=== PATIENT | male | born 1950 | race Two or more races ===

== ENCOUNTER 2019-04-02 18:20 | Inpatient (IN) | payer BC, MEDICARE ==
[~2019-04-02] VITALS: Ht 170.2 cm; Wt 73.0 kg
[2019-04-02 19:30] VITALS: BP 132/71
[2019-04-02] MEDS ORDERED: ACETAMINOPHEN 325 MG TABLET PO PRN (19:45)
[2019-04-02] MEDS ORDERED: SENNA 187 MG TABLET PO SCH (21:00)
[2019-04-02] MEDS: ATORVASTATIN CALCIUM 40 MG TABLET PO SCH (21:26)
[2019-04-02] MEDS: TAMSULOSIN HCL 0.4 MG CAPSULE PO SCH (21:26)
[2019-04-02] MEDS: INSULIN GLARGINE,HUM.REC.ANLOG 100 UNITS/ML SQ SCH (21:26)
[2019-04-02 22:01] LABS: GLUCOMETER DEV NAME(LOC) 2WR.2; GLUCOSE,POINT OF CARE 227 MG/DL (70-110)
[2019-04-03] MEDS ORDERED: DOCUSATE SODIUM 283 MG/5 ML MINI-ENEMA PR PRN
[2019-04-03 00:36] VITALS: BP 128/84
[2019-04-03 06:31] LABS: GLUCOMETER DEV NAME(LOC) 2WR.2; GLUCOSE,POINT OF CARE 213 MG/DL (70-110)
[2019-04-03 06:33] LABS: BASOPHILS % (AUTO) 0.9 % (0.0-2.0); EOSINOPHILS % (AUTO) 3.1 % (1.0-6.0); HEMATOCRIT 39.1 % (41-53); LYMPHOCYTES # (AUTO) 1.6 K/uL (1.0-4.8); LYMPHOCYTES % (AUTO) 19.7 % (22.0-44.0); MEAN CORPUSCULAR HEMOGLOBIN 31.8 pg (26.0-34.0); MEAN CORPUSCULAR HGB CONC 35.8 G/dL (31.0-37.0); MEAN CORPUSCULAR VOLUME 89 fL (80-100); MONOCYTES # (AUTO) 0.6 K/uL (0.1-1.0); NEUTROPHILS # (AUTO) 5.5 K/uL (1.8-7.7); NEUTROPHILS % (AUTO) 68.3 % (40.0-70.0); PLATELET COUNT (AUTO) 291 K/uL (150-450); RED BLOOD CELL COUNT(AUTO) 4.41 MIL/uL (4.50-5.90); RED CELL DISTRIBUTION WIDTH 13.6 % (11.5-14.5)
[2019-04-03 07:04] LABS: ALANINE AMINOTRANSFERASE 19 U/L (12-78); ALBUMIN 3.3 g/dL (3.4-5.0); ALKALINE PHOSPHATASE 124 U/L (46-116); ANION GAP 8 mmol/L (8-16); ASPARTATE AMINOTRANSFERASE 11 U/L (15-37); BILIRUBIN,TOTAL 0.7 mg/dL (0.1-1.0); CALCIUM, TOTAL 9.4 mg/dL (8.8-10.5); CARBON DIOXIDE 28 mmol/L (22-29); CHLORIDE 103 mmol/L (98-107); CREATININE 0.85 mg/dL (0.60-1.30); GLOMERULAR FILTR. RATE CALC > 60 mL/min (>60); GLUCOSE,RANDOM 219 mg/dL (70-110); POTASSIUM 3.8 mmol/L (3.5-5.1); SODIUM SERUM 139 mmol/L (136-145); TOTAL PROTEIN, SERUM 6.4 g/dL (6.4-8.2); UREA NITROGEN, BLOOD 18 mg/dL (7-18)
[2019-04-03 07:20] VITALS: BP 125/70
[2019-04-03] MEDS: MetFORMIN HCL 500 MG TABLET PO SCH ×2 (07:41→17:30)
[2019-04-03] MEDS: INSULIN LISPRO 100 UNITS/ML SQ SCH ×3 (07:42→17:29)
[2019-04-03] MEDS: FINASTERIDE 5 MG TABLET PO SCH (08:47)
[2019-04-03] MEDS: SitaGLIPtin PHOSPHATE 100 MG TABLET PO SCH (08:47)
[2019-04-03] MEDS: AmLODIPine BESYLATE 5 MG TABLET PO SCH (08:48)
[2019-04-03] MEDS: LISINOPRIL 20 MG TABLET PO SCH (08:48)
[2019-04-03] MEDS: ASPIRIN 81 MG EC TABLET PO SCH (08:48)
[2019-04-03] MEDS ORDERED: DOCUSATE SODIUM 100 MG CAPSULE PO SCH (09:00)
[2019-04-03] MEDS ORDERED: INSULIN LISPRO 100 UNITS/ML SQ PRN ×2 (12:30→12:45)
[2019-04-03] MEDS ORDERED: GLUCAGON,HUMAN RECOMBINANT 1 MG VIAL IM PRN (12:30)
[2019-04-03] MEDS ORDERED: MAGNESIUM CITRATE 300 ML ORAL SOLUTION PO ONE (12:30)
[2019-04-03 12:31] LABS: GLUCOMETER DEV NAME(LOC) 2WR.2; GLUCOSE,POINT OF CARE 214 MG/DL (70-110)
[2019-04-03] MEDS ORDERED: DEXTROSE 50%-WATER 25 GM/50 ML SYRINGE IVP PRN ×2 (12:45→13:00)
[2019-04-03] MEDS: POLYETHYLENE GLYCOL 3350 17 GM PACKET PO SCH (13:04)
[2019-04-03 15:58] VITALS: BP 124/72
[2019-04-03] MEDS: INSULIN LISPRO 100 UNITS/ML SQ PRN (17:30)
[2019-04-03 18:05] LABS: GLUCOMETER DEV NAME(LOC) 2WR.2; GLUCOSE,POINT OF CARE 176 MG/DL (70-110)
[2019-04-03] MEDS: DOCUSATE SODIUM 250 MG CAPSULE PO SCH (20:49)
[2019-04-03] MEDS: TAMSULOSIN HCL 0.4 MG CAPSULE PO SCH (20:49)
[2019-04-03] MEDS: ATORVASTATIN CALCIUM 40 MG TABLET PO SCH (20:49)
[2019-04-03] MEDS: INSULIN GLARGINE,HUM.REC.ANLOG 100 UNITS/ML SQ SCH (21:04)
[2019-04-03 21:05] LABS: GLUCOMETER DEV NAME(LOC) 2WR.1B; GLUCOSE,POINT OF CARE 126 MG/DL (70-110)
[2019-04-04 00:30] VITALS: BP 111/65
[2019-04-04 06:16] LABS: GLUCOMETER DEV NAME(LOC) 2WR.2; GLUCOSE,POINT OF CARE 146 MG/DL (70-110)
[2019-04-04 07:45] VITALS: BP 119/70
[2019-04-04] MEDS: MetFORMIN HCL 500 MG TABLET PO SCH ×2 (07:55→17:36)
[2019-04-04] MEDS: INSULIN LISPRO 100 UNITS/ML SQ PRN ×3 (07:57→20:24)
[2019-04-04] MEDS: INSULIN LISPRO 100 UNITS/ML SQ SCH ×3 (07:57→17:36)
[2019-04-04] MEDS: DOCUSATE SODIUM 250 MG CAPSULE PO SCH ×2 (08:37→20:18)
[2019-04-04] MEDS: POLYETHYLENE GLYCOL 3350 17 GM PACKET PO SCH (08:37)
[2019-04-04] MEDS: SitaGLIPtin PHOSPHATE 100 MG TABLET PO SCH (08:37)
[2019-04-04] MEDS: FINASTERIDE 5 MG TABLET PO SCH (08:37)
[2019-04-04] MEDS: AmLODIPine BESYLATE 5 MG TABLET PO SCH (08:37)
[2019-04-04] MEDS: LISINOPRIL 20 MG TABLET PO SCH (08:37)
[2019-04-04] MEDS: ASPIRIN 81 MG EC TABLET PO SCH (08:38)
[2019-04-04 12:50] LABS: GLUCOMETER DEV NAME(LOC) 2WR.2; GLUCOSE,POINT OF CARE 140 MG/DL (70-110)
[2019-04-04 16:22] VITALS: BP 109/51
[2019-04-04 18:21] LABS: GLUCOMETER DEV NAME(LOC) 2WR.2; GLUCOSE,POINT OF CARE 152 MG/DL (70-110)
[2019-04-04] MEDS: ATORVASTATIN CALCIUM 40 MG TABLET PO SCH (20:18)
[2019-04-04] MEDS: TAMSULOSIN HCL 0.4 MG CAPSULE PO SCH (20:18)
[2019-04-04] MEDS: INSULIN GLARGINE,HUM.REC.ANLOG 100 UNITS/ML SQ SCH (20:23)
[2019-04-04 20:50] LABS: GLUCOMETER DEV NAME(LOC) 2WR.2; GLUCOSE,POINT OF CARE 147 MG/DL (70-110)
[2019-04-05 00:34] VITALS: BP 113/77
[2019-04-05 06:30] LABS: GLUCOMETER DEV NAME(LOC) 2WR.1B; GLUCOSE,POINT OF CARE 125 MG/DL (70-110)
[2019-04-05 07:30] VITALS: BP 113/65
[2019-04-05] MEDS: MetFORMIN HCL 500 MG TABLET PO SCH ×2 (08:12→17:33)
[2019-04-05] MEDS: INSULIN LISPRO 100 UNITS/ML SQ SCH ×3 (08:20→16:56)
[2019-04-05] MEDS: POLYETHYLENE GLYCOL 3350 17 GM PACKET PO SCH (08:30)
[2019-04-05] MEDS: DOCUSATE SODIUM 250 MG CAPSULE PO SCH ×2 (08:31→20:54)
[2019-04-05] MEDS: ASPIRIN 81 MG EC TABLET PO SCH (08:31)
[2019-04-05] MEDS: LISINOPRIL 20 MG TABLET PO SCH (08:31)
[2019-04-05] MEDS: AmLODIPine BESYLATE 5 MG TABLET PO SCH (08:31)
[2019-04-05] MEDS: SitaGLIPtin PHOSPHATE 100 MG TABLET PO SCH (08:31)
[2019-04-05] MEDS: TAMSULOSIN HCL 0.4 MG CAPSULE PO SCH ×2 (08:31→20:54)
[2019-04-05] MEDS: FINASTERIDE 5 MG TABLET PO SCH (08:31)
[2019-04-05 12:45] LABS: GLUCOMETER DEV NAME(LOC) 2WR.2; GLUCOSE,POINT OF CARE 125 MG/DL (70-110)
[2019-04-05] MEDS ORDERED: TAMS-1 PO (13:28)
[2019-04-05] MEDS ORDERED: FINA5TAB41 PO (13:28)
[2019-04-05] MEDS ORDERED: ASPI81 PO (13:28)
[2019-04-05] MEDS ORDERED: LISI-662 PO (13:28)
[2019-04-05] MEDS ORDERED: INSU100V SQ (13:28)
[2019-04-05] MEDS ORDERED: METF-960 PO (13:28)
[2019-04-05] MEDS ORDERED: AMLO5TAB9 PO (13:28)
[2019-04-05] MEDS ORDERED: SITA100 PO (13:28)
[2019-04-05] MEDS ORDERED: ATOR40TA28 PO (13:28)
[2019-04-05] MEDS ORDERED: INSLAN SQ (13:28)
[2019-04-05 16:19] VITALS: BP 105/64
[2019-04-05 17:41] LABS: GLUCOMETER DEV NAME(LOC) 2WR.1B; GLUCOSE,POINT OF CARE 121 MG/DL (70-110)
[2019-04-05] MEDS: ATORVASTATIN CALCIUM 40 MG TABLET PO SCH (20:54)
[2019-04-05] MEDS ORDERED: INSULIN GLARGINE,HUM.REC.ANLOG 100 UNITS/ML SQ SCH (21:00)
[2019-04-05 22:00] LABS: GLUCOMETER DEV NAME(LOC) 2WR.2; GLUCOSE,POINT OF CARE 80 MG/DL (70-110)
[2019-04-05 22:22] LABS: APPEARANCE,URINE CLEAR (CLEAR); BILIRUBIN,URINE NEGATIVE (NEGATIVE); GLUCOSE, URINE (UA) NEGATIVE (NEGATIVE); KETONES,URINE NEGATIVE (NEGATIVE); LEUKOCYTE ESTERASE ,URINE NEGATIVE (NEGATIVE); NITRATE,URINE NEGATIVE (NEGATIVE); OCCULT BLOOD,URINE NEGATIVE (NEGATIVE); PH,URINE 6.5 (5.0-8.0); PROTEIN,URINE NEGATIVE (NEGATIVE)
[2019-04-05 22:42] LABS: BACTERIA,URINE None Seen /HPF (None Seen); RBC,URINE 0-2 /HPF (0-2); SQUAMOUS EPITHELIAL CELL,UR Rare /LPF (None Seen); WBC,URINE None Seen /HPF (0-5)
[2019-04-05 23:45] VITALS: BP 102/56
[2019-04-06 06:16] LABS: GLUCOMETER DEV NAME(LOC) 2WR.1B; GLUCOSE,POINT OF CARE 95 MG/DL (70-110)
[2019-04-06] MEDS: FINASTERIDE 5 MG TABLET PO SCH (07:45)
[2019-04-06] MEDS: POLYETHYLENE GLYCOL 3350 17 GM PACKET PO SCH (07:45)
[2019-04-06] MEDS: LISINOPRIL 20 MG TABLET PO SCH (07:45)
[2019-04-06] MEDS: SitaGLIPtin PHOSPHATE 100 MG TABLET PO SCH (07:45)
[2019-04-06] MEDS: ASPIRIN 81 MG EC TABLET PO SCH (07:45)
[2019-04-06] MEDS: TAMSULOSIN HCL 0.4 MG CAPSULE PO SCH ×2 (07:45→20:40)
[2019-04-06] MEDS: MetFORMIN HCL 500 MG TABLET PO SCH ×2 (07:45→17:57)
[2019-04-06] MEDS: AmLODIPine BESYLATE 5 MG TABLET PO SCH (07:45)
[2019-04-06] MEDS: DOCUSATE SODIUM 250 MG CAPSULE PO SCH ×2 (07:46→21:00)
[2019-04-06] MEDS: INSULIN LISPRO 100 UNITS/ML SQ SCH ×3 (08:17→17:58)
[2019-04-06 08:21] VITALS: BP 113/66
[2019-04-06 15:00] VITALS: BP 114/69
[2019-04-06 17:41] LABS: GLUCOMETER DEV NAME(LOC) 2WR.1B; GLUCOSE,POINT OF CARE 137 MG/DL (70-110)
[2019-04-06 18:11] LABS: GLUCOMETER DEV NAME(LOC) 2WR.2; GLUCOSE,POINT OF CARE 97 MG/DL (70-110)
[2019-04-06] MEDS: ATORVASTATIN CALCIUM 40 MG TABLET PO SCH (20:40)
[2019-04-06] MEDS: INSULIN GLARGINE,HUM.REC.ANLOG 100 UNITS/ML SQ SCH (20:46)
[2019-04-06 22:10] LABS: GLUCOMETER DEV NAME(LOC) 2WR.2; GLUCOSE,POINT OF CARE 124 MG/DL (70-110)
[2019-04-06 23:09] VITALS: BP 104/66
[2019-04-07 05:56] LABS: GLUCOMETER DEV NAME(LOC) 2WR.2; GLUCOSE,POINT OF CARE 104 MG/DL (70-110)
[2019-04-07] MEDS: TAMSULOSIN HCL 0.4 MG CAPSULE PO SCH ×2 (08:07→20:17)
[2019-04-07] MEDS: FINASTERIDE 5 MG TABLET PO SCH (08:07)
[2019-04-07] MEDS: AmLODIPine BESYLATE 5 MG TABLET PO SCH (08:08)
[2019-04-07] MEDS: MetFORMIN HCL 500 MG TABLET PO SCH ×2 (08:08→17:18)
[2019-04-07] MEDS: LISINOPRIL 20 MG TABLET PO SCH (08:08)
[2019-04-07] MEDS: ASPIRIN 81 MG EC TABLET PO SCH (08:08)
[2019-04-07] MEDS: SitaGLIPtin PHOSPHATE 100 MG TABLET PO SCH (08:09)
[2019-04-07] MEDS: INSULIN LISPRO 100 UNITS/ML SQ SCH ×3 (08:12→16:30)
[2019-04-07] MEDS: DOCUSATE SODIUM 250 MG CAPSULE PO SCH ×2 (08:13→20:30)
[2019-04-07] MEDS: POLYETHYLENE GLYCOL 3350 17 GM PACKET PO SCH (08:13)
[2019-04-07 08:57] VITALS: BP 112/64
[2019-04-07] MEDS: INSULIN LISPRO 100 UNITS/ML SQ PRN ×2 (12:37→20:25)
[2019-04-07 12:50] LABS: GLUCOMETER DEV NAME(LOC) 2WR.2; GLUCOSE,POINT OF CARE 197 MG/DL (70-110)
[2019-04-07 16:00] VITALS: BP 123/62
[2019-04-07 17:42] LABS: GLUCOMETER DEV NAME(LOC) 2WR.2; GLUCOSE,POINT OF CARE 82 MG/DL (70-110)
[2019-04-07] MEDS: ATORVASTATIN CALCIUM 40 MG TABLET PO SCH (20:18)
[2019-04-07] MEDS: INSULIN GLARGINE,HUM.REC.ANLOG 100 UNITS/ML SQ SCH (20:21)
[2019-04-07 21:56] LABS: GLUCOMETER DEV NAME(LOC) 2WR.2; GLUCOSE,POINT OF CARE 216 MG/DL (70-110)
[2019-04-07] MEDS: MELATONIN 5 MG TABLET PO PRN (23:45)
[2019-04-08] VITALS: BP 122/76
[2019-04-08 06:02] LABS: GLUCOMETER DEV NAME(LOC) 2WR.1B; GLUCOSE,POINT OF CARE 127 MG/DL (70-110)
[2019-04-08] MEDS: MetFORMIN HCL 500 MG TABLET PO SCH ×2 (07:57→17:21)
[2019-04-08 08:00] VITALS: BP 108/61
[2019-04-08] MEDS: FINASTERIDE 5 MG TABLET PO SCH (08:00)
[2019-04-08] MEDS: ASPIRIN 81 MG EC TABLET PO SCH (08:00)
[2019-04-08] MEDS: DOCUSATE SODIUM 250 MG CAPSULE PO SCH ×2 (08:01→20:49)
[2019-04-08] MEDS: AmLODIPine BESYLATE 5 MG TABLET PO SCH (08:01)
[2019-04-08] MEDS: SitaGLIPtin PHOSPHATE 100 MG TABLET PO SCH (08:01)
[2019-04-08] MEDS: TAMSULOSIN HCL 0.4 MG CAPSULE PO SCH ×2 (08:01→20:49)
[2019-04-08] MEDS: LISINOPRIL 20 MG TABLET PO SCH (08:01)
[2019-04-08] MEDS: POLYETHYLENE GLYCOL 3350 17 GM PACKET PO SCH (08:01)
[2019-04-08] MEDS: INSULIN LISPRO 100 UNITS/ML SQ SCH ×3 (08:04→17:30)
[2019-04-08 15:34] VITALS: BP 108/67
[2019-04-08 16:55] LABS: GLUCOMETER DEV NAME(LOC) 2WR.1B; GLUCOSE,POINT OF CARE 133 MG/DL (70-110)
[2019-04-08 18:31] LABS: GLUCOMETER DEV NAME(LOC) 2WR.2; GLUCOSE,POINT OF CARE 117 MG/DL (70-110)
[2019-04-08 20:35] LABS: GLUCOMETER DEV NAME(LOC) 2WR.1B; GLUCOSE,POINT OF CARE 104 MG/DL (70-110)
[2019-04-08] MEDS: ATORVASTATIN CALCIUM 40 MG TABLET PO SCH (20:49)
[2019-04-08] MEDS: INSULIN GLARGINE,HUM.REC.ANLOG 100 UNITS/ML SQ SCH (20:50)
[2019-04-09] VITALS: BP 115/69
[2019-04-09 06:16] LABS: GLUCOMETER DEV NAME(LOC) 2WR.1B; GLUCOSE,POINT OF CARE 88 MG/DL (70-110)
[2019-04-09] MEDS: INSULIN LISPRO 100 UNITS/ML SQ SCH ×3 (07:00→17:27)
[2019-04-09] MEDS: MetFORMIN HCL 500 MG TABLET PO SCH ×2 (07:40→17:26)
[2019-04-09] MEDS: TAMSULOSIN HCL 0.4 MG CAPSULE PO SCH ×2 (08:21→20:07)
[2019-04-09] MEDS: SitaGLIPtin PHOSPHATE 100 MG TABLET PO SCH (08:21)
[2019-04-09] MEDS: FINASTERIDE 5 MG TABLET PO SCH (08:21)
[2019-04-09] MEDS: POLYETHYLENE GLYCOL 3350 17 GM PACKET PO SCH ×2 (08:21→08:46)
[2019-04-09] MEDS: DOCUSATE SODIUM 250 MG CAPSULE PO SCH ×3 (08:22→20:07)
[2019-04-09] MEDS: AmLODIPine BESYLATE 5 MG TABLET PO SCH (08:22)
[2019-04-09] MEDS: ASPIRIN 81 MG EC TABLET PO SCH (08:22)
[2019-04-09] MEDS: LISINOPRIL 20 MG TABLET PO SCH (08:22)
[2019-04-09 08:58] VITALS: BP 115/73
[2019-04-09] MEDS ORDERED: INFLUENZA VIRUS VACCINE QVS 2019-20 (3YR+)/PF 60 MCG/0.5 ML SYRINGE IM ONE (11:15)
[2019-04-09] MEDS: INSULIN LISPRO 100 UNITS/ML SQ PRN (12:51)
[2019-04-09 15:44] VITALS: BP 107/62
[2019-04-09 18:16] LABS: GLUCOMETER DEV NAME(LOC) 2WR.1B; GLUCOSE,POINT OF CARE 178 MG/DL (70-110)
[2019-04-09 18:16] LABS: GLUCOMETER DEV NAME(LOC) 2WR.1B; GLUCOSE,POINT OF CARE 81 MG/DL (70-110)
[2019-04-09 19:58] VITALS: BP 104/62
[2019-04-09] MEDS: ATORVASTATIN CALCIUM 40 MG TABLET PO SCH (20:07)
[2019-04-09] MEDS: INSULIN GLARGINE,HUM.REC.ANLOG 100 UNITS/ML SQ SCH (20:13)
[2019-04-09 20:51] LABS: GLUCOMETER DEV NAME(LOC) 2WR.1B; GLUCOSE,POINT OF CARE 121 MG/DL (70-110)
[2019-04-09] MEDS: MELATONIN 5 MG TABLET PO PRN (20:58)
[2019-04-09 23:56] VITALS: BP 108/61
[2019-04-10 06:26] LABS: GLUCOMETER DEV NAME(LOC) 2WR.1B; GLUCOSE,POINT OF CARE 73 MG/DL (70-110)
[2019-04-10] MEDS: INSULIN LISPRO 100 UNITS/ML SQ SCH ×3 (07:00→17:21)
[2019-04-10 07:21] VITALS: BP 107/65
[2019-04-10] MEDS: MetFORMIN HCL 500 MG TABLET PO SCH ×2 (07:42→17:09)
[2019-04-10] MEDS: AmLODIPine BESYLATE 5 MG TABLET PO SCH (07:58)
[2019-04-10] MEDS: FINASTERIDE 5 MG TABLET PO SCH (07:58)
[2019-04-10] MEDS: TAMSULOSIN HCL 0.4 MG CAPSULE PO SCH ×2 (07:58→20:29)
[2019-04-10] MEDS: ASPIRIN 81 MG EC TABLET PO SCH (07:58)
[2019-04-10] MEDS: LISINOPRIL 20 MG TABLET PO SCH (07:58)
[2019-04-10] MEDS: DOCUSATE SODIUM 250 MG CAPSULE PO SCH ×2 (07:58→20:29)
[2019-04-10] MEDS: SitaGLIPtin PHOSPHATE 100 MG TABLET PO SCH (07:58)
[2019-04-10] MEDS: POLYETHYLENE GLYCOL 3350 17 GM PACKET PO SCH (07:59)
[2019-04-10 13:25] LABS: GLUCOMETER DEV NAME(LOC) 2WR.2; GLUCOSE,POINT OF CARE 99 MG/DL (70-110)
[2019-04-10 15:24] VITALS: BP 97/57
[2019-04-10 17:22] LABS: GLUCOMETER DEV NAME(LOC) 2WR.2; GLUCOSE,POINT OF CARE 168 MG/DL (70-110)
[2019-04-10] MEDS: INSULIN LISPRO 100 UNITS/ML SQ PRN (17:22)
[2019-04-10 20:24] VITALS: BP 115/72
[2019-04-10] MEDS: ATORVASTATIN CALCIUM 40 MG TABLET PO SCH (20:29)
[2019-04-10] MEDS ORDERED: INSULIN GLARGINE,HUM.REC.ANLOG 100 UNITS/ML SQ SCH (21:00)
[2019-04-10 21:11] LABS: GLUCOMETER DEV NAME(LOC) 2WR.1B; GLUCOSE,POINT OF CARE 102 MG/DL (70-110)
[2019-04-11 00:45] VITALS: BP 112/65
[2019-04-11] MEDS ORDERED: INSLAN SQ ×2 (01:08→11:51)
[2019-04-11] MEDS ORDERED: DOCU-342 PO (01:08)
[2019-04-11 06:45] LABS: GLUCOMETER DEV NAME(LOC) 2WR.1B; GLUCOSE,POINT OF CARE 80 MG/DL (70-110)
[2019-04-11] MEDS: INSULIN LISPRO 100 UNITS/ML SQ SCH ×2 (07:00→12:38)
[2019-04-11] MEDS: MetFORMIN HCL 500 MG TABLET PO SCH (08:09)
[2019-04-11] MEDS: DOCUSATE SODIUM 250 MG CAPSULE PO SCH ×2 (08:09→08:18)
[2019-04-11] MEDS: FINASTERIDE 5 MG TABLET PO SCH (08:09)
[2019-04-11] MEDS: TAMSULOSIN HCL 0.4 MG CAPSULE PO SCH (08:10)
[2019-04-11] MEDS: SitaGLIPtin PHOSPHATE 100 MG TABLET PO SCH (08:10)
[2019-04-11] MEDS: ASPIRIN 81 MG EC TABLET PO SCH (08:10)
[2019-04-11] MEDS: LISINOPRIL 20 MG TABLET PO SCH (08:17)
[2019-04-11] MEDS: POLYETHYLENE GLYCOL 3350 17 GM PACKET PO SCH (08:17)
[2019-04-11] MEDS: AmLODIPine BESYLATE 5 MG TABLET PO SCH (08:17)
[2019-04-11 09:01] VITALS: BP 94/50
== END 2019-04-11 13:17 | disposition home or self-care (01) | DRG 56 ==
LOC: 2WR 18:20
PROVIDERS: ADMIT Physical Medicine & Rehabilitation; ATTEND Physical Medicine & Rehabilitation
DX: I69.354 Hemiplegia and hemiparesis following cerebral infarction affecting left non-dominant side (principal); I63.9 Cerebral infarction, unspecified; E44.0 Moderate protein-calorie malnutrition; D17.9 Benign lipomatous neoplasm, unspecified; E11.21 Type 2 diabetes mellitus with diabetic nephropathy; E78.5 Hyperlipidemia, unspecified; I10 Essential (primary) hypertension; N39.490 Overflow incontinence; N40.1 Benign prostatic hyperplasia with lower urinary tract symptoms; Z79.899 Other long term (current) drug therapy; Z83.3 Family history of diabetes mellitus; Z91.19 Patient's noncompliance with other medical treatment and regimen; Z68.24 Body mass index [BMI] 24.0-24.9, adult; Z23 Encounter for immunization
CPT/HCPCS: 84153; 87081; 90686; 92507; 92508; 92523; 97110; 97112; 97116; 97150; 97163; 97166; 97530; 97535; 99366; J1815